=== PATIENT | female | born 1970 | race Hispanic/Latino ===

== ENCOUNTER 2018-05-29 14:27 | Emergency (ER) | payer OTHER ==
--- NOTE | 2018-05-29 15:21 | RAD ---
LEFT KNEE 4 VIEWS:: Date: 05/29/18 HISTORY: Knee pain after working out. FINDINGS: There are no signs of fracture or dislocation. No evidence of any significant joint effusion. No sign ificant arthritic change. IMPRESSION: Unremarkable left knee. POS: [facility]
--- NOTE | 2018-05-29 16:58 | ULT ---
VENOUS DUPLEX SONOGRAM LEFT LOWER EXTREMITY: 05/29/18 HISTORY: Left leg pain and edema. FINDINGS: The left common femoral vein and greater saphenous junction were evaluated along with the femoral, de ep femoral, popliteal, and posterior tibial veins. There is good color and spectral doppler flow, com pression, and augmentation. IMPRESSION: No sonographic evidence of DVT within the left lower extremity. POS: [facility]
[2018-05-29] MEDS ORDERED: Ibuprofen 200 MG TAB ONE (17:06)
== END 2018-05-29 17:15 ==
LOC: ERS 14:27
DX: M25.562 Pain in left knee (principal); I10 Essential (primary) hypertension; J45.909 Unspecified asthma, uncomplicated; Z86.718 Personal history of other venous thrombosis and embolism; F41.9 Anxiety disorder, unspecified; F32.9 Major depressive disorder, single episode, unspecified; F43.10 Post-traumatic stress disorder, unspecified; Z79.51 Long term (current) use of inhaled steroids; Z79.899 Other long term (current) drug therapy

== ENCOUNTER 2019-03-25 08:36 | Outpatient (CLI) | payer OTHER ==
--- NOTE | 2019-03-25 11:26 | MRI ---
MRI LEFT KNEE WITHOUT CONTRAST: HISTORY: Knee pain. COMPARISON: None. FINDINGS: Medial meniscus; Intact. Lateral meniscus: Intact. ACL, PCL, MCL, LCL: Intact. Extensor mechanism: Quadriceps tendon, patella and patellar tendon intact. The tibial tuberosity/troc hlea groove distance is 18 mm. Bones: No fracture. No malalignment. No contusion or edema. CARTILAGE: Patellofemoral compartment: Intact. Medial compartment: There are a few high-grade chondral fissures of the central weight bearing surfac e, medial femoral condyle, with subcoracoid reactive marrow changes. Lateral compartment: Intact. Muscles: Muscle signal and bulk is normal. Soft tissues: No significant joint effusion. No significant popliteal cyst formation. IMPRESSION: 1. Mild increased tibial tuberosity-trochlea groove distance without evidence for trochlear dysplasia . 2. There is a focal grade 3/early 4 chondromalacia, central weight-bearing surface, medial femoral co ndyle. 3. Intact menisci and cruciate ligaments. 4. No evidence for a recently reduced transient lateral patellar dislocation. POS: [facility]
== END 2019-03-25 08:37 | disposition home or self-care (01) ==
LOC: BICMRI 08:36
PROVIDERS: ATTEND Family Medicine
DX: M25.562 Pain in left knee (principal); M94.262 Chondromalacia, left knee

== ENCOUNTER 2020-03-18 21:02 | Emergency (ER) | payer OTHER ==
[~2020-03-18 21:02] MED LIST: Iopamidol 370 76% 100 ML VIAL ONE
--- NOTE | 2020-03-18 21:29 | RAD ---
Portable frontal chest radiograph: 03/18/2020 COMPARISON: None HISTORY: Chest pain, dizziness FINDINGS: Lungs are clear. Heart and mediastinal contours appear within normal limits. IMPRESSION: No acute findings.
[2020-03-18 22:23] LABS: #Eosinphils 0.1 thou/uL (0.0-0.7); #Lymphocytes 3.8 thou/uL (1.20-3.40); #Monocytes 0.6 thou/uL (0.11-0.59); #Neutrophils 4.8 thou/uL (1.40-6.50); %Basophils 0.4 % (0.0-1.0); %Eosinophils 1.4 % (0.0-10.0); %Lymphocytes 40.8 % (21.0-51.0); %Monocytes 6.5 % (0.0-10.0); %Neutrophils 50.9 % (42.0-75.0); Hemoglobin 14.1 g/dL (12.0-16.0); Mean Corpuscular HGB CONC 33.5 g/dL (32.0-36.0); Mean Corpuscular Hemoglobin 29.5 pg (27.0-31.0); Mean Platelet Volume 9.2 fL (7.4-10.4); Platelet Count 209 thou/uL (130-400); RBC Distribution Width 11.7 % (11.5-14.5); Red Blood Cell (RBC) Count 4.78 mill/uL (4.20-5.40); White Blood Cell (WBC) Count 9.3 thou/uL (4.8-10.8)
[2020-03-18 22:43] LABS: ALT (SGPT) 15 U/L (8-55); AST (SGOT) 15 U/L (5-34); Alkaline Phosphatase 102 U/L (40-110); Anion Gap 12 mmol/L (10-20); BUN (Urea Nitrogen) 22 mg/dL (7.0-18.7); Bilirubin, Total 0.5 mg/dL (0.2-1.2); CK (CPK) 37 U/L (29-168); Calc. Creatinine Clearance 0 mL/min (70-130); Calcium 8.9 mg/dL (7.8-10.44); Carbon Dioxide 29 mmol/L (22-29); Chloride 105 mmol/L (98-107); Globulin 2.9 g/dL (2.4-3.5); Glucose 110 mg/dL (70-105); Lipase 123 U/L (8-78); Potassium 4.2 mmol/L (3.5-5.1); Protein, Total 6.9 g/dL (6.0-8.3); Sodium 142 mmol/L (136-145)
--- NOTE | 2020-03-19 08:11 | CT ---
PRELIMINARY REPORT/[facility]/EMERGENCY AFTER HOURS PROCEDURE: EXAM: CTA Chest with Intravenous Contrast CLINICAL HISTORY: HAS BEEN HAVING DIZZINESS, CP, AND A HEADACHE//ELEVATED D DIMER TECHNIQUE: Axial CTA images of the chest with intravenous contrast. Three-dimensional MIP/volume rend ered reformations were performed. CONTRAST: With; ISOVUE 370;70mL COMPARISON: None provided. FINDINGS: PULMONARY ARTERIES There is no intraluminal filling defect suspicious for PE. AORTA No thoracic aortic aneurysm or dissection. LUNGS Bibasilar dependent atelectasis. No pulmonary mass. No focal airspace consolidation. PLEURAL SPACES No pleural effusion. No pneumothorax. HEART AND MEDIASTINUM No cardiomegaly. No significant pericardial effusion. Heterogeneous lesion in the right lobe of the thyroid gland measuring 2.1 x 1.6 cm. LYMPH NODES No lymphadenopathy. BONES No focal osseous abnormality or acute fracture. Multilevel mild degenerative disc disease. CHEST WALL AND UPPER ABDOMEN Cholecystectomy clips in the gallbladder fossa. Hepatomegaly. The chest wall is unremarkable. IMPRESSION: No evidence of a pulmonary embolism. Bibasilar dependent atelectasis. Heterogeneous lesion in the right lobe of the thyroid gland. Follow-up with a thyroid ultrasound is recommended. ELECTRONICALLY SIGNED BY: Andre Muller MD Mar 19, 2020 2:13:42 AM YARD CALLER This report is intended for review by the ordering physician only, in accordance of law. If you recei ve this report in error, please call [facility] at [phone]. FINAL REPORT EMERGENT AFTER HOURS CTA OF THE CHEST WITH CONTRAST: FINDINGS/IMPRESSION: I agree with the findings and impression given in the preliminary report per [facility] physici an. 1. No evidence of pulmonary thromboembolism. 2. There is heterogeneity of the right thyroid lobe. A nonemergent thyroid ultrasound should be per formed for further evaluation. POS: [place]
--- NOTE | 2020-03-21 16:31 | EKG ---
Test Reason : Blood Pressure : / mmHG Vent. Rate : 097 BPM Atrial Rate : 097 BPM P-R Int : 126 ms QRS Dur : 078 ms QT Int : 364 ms P-R-T Axes : 037 005 024 degrees QTc Int : 462 ms Normal sinus rhythm Normal ECG Confirmed by RUTHIE HOFFMAN M.D. ([id number]), rewrite editor CONNOR VERA ([id number]) on 03/21/2020 4:31:14 PM Referred By: Confirmed By:RUTHIE HOFFMAN M.D.
== END 2020-03-19 02:48 ==
LOC: ERS 21:02
DX: R07.89 Other chest pain (principal); E04.1 Nontoxic single thyroid nodule; I10 Essential (primary) hypertension; F41.9 Anxiety disorder, unspecified; F32.9 Major depressive disorder, single episode, unspecified; Z79.899 Other long term (current) drug therapy
CPT/HCPCS: 36415; 71045; 71275; 80053; 82550; 83690; 84484; 85025; 85379; 93005; Q9967